=== PATIENT | male | born 1950 | race Caucasian/White ===

== ENCOUNTER 2021-11-09 11:44 | Outpatient (CLI) | payer MEDICARE, BC, SELFPAY | END 2021-11-09 11:45 | disposition home or self-care (01) | LOC: OP CLINIC 11:45 | PROVIDERS: PCP Family Medicine; Visit Provider Internal Medicine Gastroenterology | DX: Z12.11 Encounter for screening for malignant neoplasm of colon (principal); K63.5 Polyp of colon; K57.30 Diverticulosis of large intestine without perforation or abscess without bleeding; Z86.010 Personal history of colon polyps | CPT/HCPCS: 45380; 45385; 88305; 99153; J2250; J3010 ==

== ENCOUNTER 2023-08-09 07:37 | Emergency (ER) | payer MEDICARE, BC, SELFPAY ==
[2023-08-09] VITALS (30 sets, daily range): BP systolic 98–132; BP diastolic 65–91; PULSE 63–88; RESP 6–19; TEMP 36.4; O2SAT 2–98; BMI 30.3
--- NOTE | 2023-08-09 08:31 | XR_ITS ---
Patient: KAMI AVALOS Facility:?[facility] Patient ID:?[id number] Site Patient ID:?[id number]. Site :?[id number] Study:?XRay-Chest 2 VIEW-08/09/2023 8:52:52 AM Ordering Physician:ABE MENESES Final Report: Indication: AFib Comparison: None available. Technique: PA and lateral views of the chest Findings: There is minimal basilar atelectasis and parenchymal scar without dense consolidation, effusion or pneumothorax. The cardiomediastinal silhouette is within normal limits. The bony thorax is grossly intact. Impression: Minimal basilar atelectasis and parenchymal scar without dense consolidation. Dictated by Omar Pittman MD @ 08/09/2023 9:06:03 AM Signed by:?Omar Pittman MD @08/09/2023 9:06:03 AM (Electronic Signature)
[2023-08-09] MEDS: 0.9 % SODIUM CHLORIDE 1000 ml 1,000 ML IV (08:36)
[2023-08-09 08:42] LABS: Troponin, Point-of-Care* 0.01 ng/ml (0.01-0.04)
--- OUTSIDE RECORDS SUMMARY | 2023-08-09 08:42 | XMS_ITS | Clinical Summary ---
Author Name Unknown Organization [facility] [place], [place] [address] Care Team Providers Care [employer] General Sales Manager Name Role Phone Brendon Brandt MD Primary Care Provider Allergies Active Allergy Reactions Criticality Noted Date Comments Amlodipine Other - Describe In Comment Field 07/26/2017 Edema on 10mg, and on 5mg. Hydrochlorothiazide Other - Describe In Comment Field 09/23/2017 Modest increase in Creatinine to 1.39. Returned to normal after stopping. Medications Medication Sig Dispensed Refills Start Date End Date Status rivaroxaban (Xarelto) 20 mg tabletIndications:A trial fibrillation, unspecified type (HC) Take 1 Tablet (20 mg) by mouth once daily with evening meal. 90 Tablet 3 07/26/2022 Active CPAPIndications:AMIE (obstructive sleep apnea) CPAP machine for home use at pressure 11.6 cmw, full face mask x1/3month with a full face cushion x1/mo 1 Each 11 02/11/2023 Active propafenone (RYTHMOL SR) 225 mg Sustained-Release capsuleIndications: Paroxysmal atrial fibrillation (HC) Take 1 Capsule (225 mg) by mouth every 12 hours. 180 Capsule 3 04/19/2023 Active desonide 0.05% (TRIDESILON 0.05% CREAM) 0.05 % creamIndications:Se borrheic dermatitis Apply topically to affected area(s) 3 times daily. Apply to affected area. Only using as needed. 30 g 1 07/05/2023 Active atorvastatin (LIPITOR) 80 mg tabletIndications:M ixed hyperlipidemia Take 1 Tablet (80 mg) by mouth once daily. 90 Tablet 3 07/05/2023 Active lisinopriL (PRINIVIL; ZESTRIL) 40 mg tabletIndications:E ssential hypertension Take 1 Tablet (40 mg) by mouth once daily. 90 Tablet 3 07/05/2023 Active metoprolol succinate (TOPROL XL) 50 mg sustained-release tabletIndications:A trial fibrillation, unspecified type (HC) Take 1 Tablet (50 mg) by mouth once daily. 90 Tablet 08/05/2023 Active metoprolol succinate (TOPROL XL) 50 mg sustained-release tabletIndications:A trial fibrillation, unspecified type (HC) Take 1 Tablet (50 mg) by mouth once daily. 90 Tablet 3 07/29/2022 Discontinue d(Reorder (E-cancel not sent)) Active Problems Problem Noted Date Diagnosed Date Adenomatous duodenal polyp; 01/2023, referred to [place]. 01/07/2023 Overview: EGD 01/2023 H. Pylori, duodenal polyp, referred to a larger center for polypectomy H. pylori infection 01/202301/07/2023 Overview: EGD 01/2023 H. Pylori, duodenal polyp, referred to a larger center for polypectomy Adenomatous colon polyp 08/25/2017 Overview: Colonoscopy 08/2017 polyps, repeat in 3 years Colonoscopy 11/2021 2-TA, repeat in 5 years Hyperlipidemia 06/15/2017 Prediabetes 06/15/2017 Obesity 06/15/2017 Essential hypertension 03/08/2017 Paroxysmal atrial fibrillation 02/25/2016 Prostate cancer (HC) prostatectomy 201507/10/19 16 AMIE 12/09/2014 AHI-27 01/06/2015 Resolved Problems Problem Noted Date Diagnosed Date Resolved Date Stage 3a chronic kidney disease 07/02/2020 06/25/2021 Anticoagulation monitoring, INR range 2-3 [Z79.01] 02/27/2016 03/01/2016 Atrial fibrillation, unspecified type 02/25/2016 03/16/2016 A-fib 04/08/2015 06/15/2017 Atrial fibrillation 11/29/2014 03/16/20 16 Hypertriglyceridemia 11/29/201406/15/ 018 Encounters Date Type Department Care Team Description 08/05/2023 Refill [facility] [address] [place] [address] Raymundo Yanes MD Refill Request 08/05/2023 Refill [facility] [address] [facility] [place] [address] Brendon Brandt MD Refill Request (Lisinopril) 08/02/2023 1:15 PM CDT Office Visit [facility] [address] [place] [address] Brendon Brandt MD Follow Up (Blood pressure) 08/02/2023 Travel 07/29/2023 Refill [facility] [address] [place] [address] Brendon Brandt MD Refill Request (Atorvastatin) 07/27/2023 9:15 AM CDT Orders Only [facility] [address] [facility] [place] [address] Lab, [place] [facility] 07/27/2023 Travel 07/05/2023 10:30 AM CDT Office Visit [facility] [address] [facility] [place] [address] Brendon Brandt MD Medicare ANNUAL (subsequent) Visit (73 year old); Headache (Light headaches, happens occasionally, started about 2 months ago, ); Concerns (Check incision site from prostate removal for hernias/Discuss allergies) 07/05/2023 Travel 07/01/2023 Refill [facility] [address] [place] [address] Brendon Brandt MD Refill Request (Atorvastatin) 06/28/2023 9:00 AM CDT Orders Only [facility] [address] [facility] [place] [address] Lab, [place] [facility] 06/28/2023 Travel 05/17/2023 1:00 PM PROGRAM ENGINEER Nurse/Clinic Staff Only [facility] [address] [place] [address] Cardiovascular Diagnostic Testing (12 LEAD ECG) 05/17/2023 Travel 05/17/2023 Telephone [facility] [address] [facility] [address] [place] [address] Raymundo Yanes MD Questions (Cardioversion tomorrow ) 05/12/2023 Travel 05/11/2023 Telephone [facility] [address] [facility] [address] [place] [address] Raymundo Yanes MD Arrhythmia from Last 3 Months Immunizations Name Administration Dates Next Due COVID-19 vaccine ([employer] 30mcg/0.3mL) PF, MDV 06/24/2020,06/03/2020 Hepatitis B (Adult) 12/13/2016,10/04/2016,2016 Influenza Virus, Unspecified 01/13/2017,01/19/20 12 Influenza, High-dose Inactivated 01/17/2016 Influenza, High-dose Quadriv alent Inactivated 12/21/2021,01/08/2021 Influenza, IIV3 (Age 6-35 mos) 12/17/2019 Influenza, IIV3 (Age >=3 years) 01/07/20 15,01/10/2014,01/08/2013,2011,01/04/2011 Influenza, IIV4 01/06/2015 Influenza, IIV4 (=>6mos) MDV 01/10/2019 Influenza, Inactivated AIIV4 (Age 65+ Years) Preserv Free 01/21/2023 Influenza, Inactivated IIV3 (Age 65+ Years) Preserv Free 01/11/2018 Influenza, Whole Virus 01/13/2017 Pneumococcal Conj 20-valent (Prevnar 20) 07/05/2023 Pneumococcal Poly,23-Valent (Pneumovax) 02/05/2014 Pneumococcal conj 13-Valent (Prevnar 13) 07/11/2015 Td, Preservative Free (age > = 7 Years) 06/15/2017 Tdap 08/17/2007 Zoster (Shingrix-RZV, recombinant) 09/01/2018, Zoster (Zostavax-ZVL, live) 09/09/2010 Family History Medical History Relation Name Comments Cancer-prostate Father Heart Disease Maternal Grandfather d58 Lung cancer Mother Anesthesia Problem Neg. 1 Cancer-colon Neg. 2 Diabetes Neg. 3 Relation Name Status Comments Father Maternal Grandfather Mother Neg. 1 Neg. 2 Neg. 3 Social History Tobacco Use Types Packs/Day Years Used Date Smoking Tobacco: Former Cigarettes 1.5 10 Smokeless Tobacco: Never Tobacco Cessation:Counseling Given: No Alcohol Use Standard Drinks/Week Comments Yes 1 (1 standard drink = 0.6 oz pur e alcohol) seldom PHQ-2 Answer Date Recorded PHQ-2 TOTAL SCORE 0 07/05/2023 Social Connections Answer Date Recorded Frequency of Communication with Friends and Fami ly Not on file 12/11/2022 Financial Resource Strain Answer Date R ecorded Difficulty of Paying Living Expenses 3 12/09/2021 Difficulty of Paying Living Expenses Not on file 12/09/2021 Food Insecurity Answer Date Recorded Worried About Running Out of Food in the Last Ye ar 1 12/09/2021 Transportation Needs Answer Date Record ed Lack of Transportation (Medical) 1 12/09/2021 Housing Stability Answer Date Recorded Unable to Pay for Housing in the Last Year 1 12/09/2021 Sex and Gender Information Value Date Recorded Sex Assigned at Not on file Gender Identity Not on file Sexual Orientation Not on file Obstetrics History Last Filed Vital Signs Vital Sign Reading Time Taken Comments Blood Pressure 134/73 08/02/2023 1:14 PM CDT Pulse 72 08/02/2023 1:14 PM CDT Temperature 36.5 ??C (97.7 ??F) 12/03/2021 8:57 AM CD T Respiratory Rate 12 01/04/2023 4:12 PM CDT Oxygen Saturation 97% 08/02/2023 1:14 PM CDT Inhaled Oxygen Concentration - - Weight 92.1 kg (203 lb) 08/02/2023 1:14 PM CDT Height 174 cm (5' 8.5) 07/05/2023 10:33 AM CDT Body Mass Index 30.41 07/05/2023 10:33 AM CDT Plan of Treatment Upcoming Encounters Date Type Department Care Team (Late st Contact Info) Description 09/12/2023 4:00 PM CDT Office Visit [facility] [address] [facility] [address] [place] [address] Raymundo Yanes MD [address] [facility] [address] [place] [address] Health Maintenance Due Date Last Done Comments COVID-19 vaccine series ( season) 2022 07/31/2021, 02/11/2021, 06/24/2020, Additional history exists Influenza for age 65+ 12/04/2023 01/21/2023 , 12/21/2021, 01/08/2021, Additional history exists BMI (ht and wt on same day) for age 18+ 07/04/2024 07/05/2023, 07/26/2022, 07/15/2022, Additional history exists Depression screening for age 12+ 07/04/2024 07/05/2023, 06/30/2022, 06/25/2021, Additional history exists Medicare Wellness for age 65+ 07/05/2024, 06/30/2022, 06/25/2021, Additional history exists Colonoscopy through age 75 11/09/202611/09, 11/09/2021, 08/24/2017, Additional history exists Tetanus booster 06/16/2027 06/15/2017, 08/17/2007 Lipids for age 45-75 06/27/2028 06/28/2023, 06/24/2022, 06/22/2021, Additional history exists Tdap Completed 08/17/2007 Hepatitis C screening for ag e 18-79 Completed 03/26/2016 Zoster (shingles) series for age 50+ Completed 09/01/2018, 06/20/2018, 09/09/2010 Pneumococcal series for age 65+ Completed 07/05/2023, 07/11/2015, 02/05/2014 Procedures Procedure Name Priority Date/Time Associated Diagnosis Comments BASIC METABOLIC PANEL Routine 07/27/2023 9:16 AM CDT Essential hypertension BASIC METABOLIC PANEL Routine 06/28/2023 9:01 AM CDT Essential hypertension HEMOGLOBIN A1C SCREENING Routine 06/28/2023 9:01 AM CDT Prediabetes PSA TOTAL (DIAGNOSTIC) Routine 06/28/2023 9:01 AM CDT Prostate cancer (HC) LIPID PANEL W REFLEX MEASURED LDL Routine 06/28/2023 9:01 AM CDT Mixed hyperlipidemia EKG 12 LEAD Routine 05/17/2023 1:18 PM PROGRAM ENGINEER Paroxysmal atrial fibrillation (HC) EKG 12 LEAD Routine 05/12/2023 9:02 AM PROGRAM ENGINEER Paroxysmal atrial fibrillation (HC) SC COLONOSCOPY W/BIOPSY SINGLE/MULTIPLE Routine 11/09/2021 12:00 AM CDT History of colon polyps Polyp of colon, unspecified part of colon, unspecified type ANTI HCV Routine 03/26/2016 7:57 AM PROGRAM ENGINEER Need for hepatitis C screening test from Last 3 Months or Most Recently Relevant to Health Maintenance Results * (ABNORMAL) BASIC METABOLIC PANEL (07/27/2023 9:16 AM CDT) Only the most recent of2 resultswithin the time period is included. SODIUM 141 136 - 145 mmol/L 07/27/2023 7:03 PM CDT [facility] POTASSIUM 5.1 3.5 - 5.1 mmol/L 07/27/2023 7:03 PM CDT [facility] CHLORIDE 106 98 - 107 mmol/L 07/27/2023 7:03 PM CDT [facility] CO2,TOTAL 24 22 - 29 mmol/L 07/27/2023 7:03 PM CDT [facility] ANION GAP 11 5 - 18 07/27/2023 7:03 PM CDT [facility] GLUCOSE 107(H) 70 - 99 mg/dL 07/27/2023 7:03 PM CDT [facility] CALCIUM 9.2 8.8 - 10.2 mg/dL 07/27/2023 7:03 PM CDT [facility] BUN 18 8 - 23 mg/dL 07/27/2023 7:03 PM CDT [facility] CREATININE 1.19 0.70 - 1.20 mg/dL 07/27/2023 7:03 PM CDT [facility] BUN/CREAT RATIO 15 10 - 20 7:03 PM CDT [facility] eGFR 64(L) >90 mL/min/1.7 3m2 07/27/2023 7:03 PM CDT [facility] Comment:As of 2021, eG FR is calculated by the CKD-EPI creatinine equation without race adjustment. ??eGFR can be influenced by muscle mass, exercise, and diet. ??The reported eGFR is an estimation only and is only applicable if the renal function is stable. Blood BLOOD SPECIMEN / Unknown Venipuncture / Unknown 07/27/2023 9:16 AM CDT 07/27/2023 9:17 AM CDT Brendon Brandt MD CHEMISTRY [facility] [address] [place] [address], * HEMOGLOBIN A1C SCREENING (06/28/2023 9:01 AM CDT) HEMOGLOBIN A1C SCREENING 5.7 <=6.4 % 06/28/2023 5:09 PM CDT [facility] Blood BLOOD SPECIMEN / Unknown Venipuncture / Unknown 06/28/2023 9:01 AM CDT 06/28/2023 9:02 AM CDT Narrative [facility] - 06/28/2023 5:09 PM CDT ? (<5.7%) ?Normal ? (5.7% to 6.4%) ? Indicates prediabetes ? (>=6.5%) ? Confirms diabetes Falsely low levels may be seen with: Recent Transfusion, Recent Significant Blood Loss, Hemolytic Diseases, or Falsely elevated levels may be seen with: Untreated Anemias, Splenectomy Brendon Brandt MD CHEMISTRY Performing Organization Address City/[facility]/ZIP Co de Phone Number [facility] [address] [place] [address], * (ABNORMAL) LIPID PANEL W REFLEX MEASURED LDL (06/28/2023 9:01 AM CDT) [facility] CHOLESTEROL,TOTAL 110 100 - 199 mg/dL 06/28/2023 4:17 PM CDT [facility] Comment: Cholesterol, Total Reference Ranges Desirable <200 mg/dL Borderline 200-239 mg/dL High >=240 mg/dL TRIGLYCERIDES 123 <150 mg/dL 06/28/2023 4:17 PM CDT [facility] HDL CHOLESTEROL 38(L) >40 mg/dL 4:17 PM CDT [facility] NON-HDL CHOLESTEROL 72 <145 mg/dl 06/28/2023 4:17 PM CDT [facility] CHOL/HDL RATIO 2.89 <4.50 06/28/2023 4:17 PM CDT [facility] LDL CHOLESTEROL 47 <=130 mg/dL 06/28/2023 4:17 PM CDT [facility] VLDL CHOLESTEROL 25 <=30 mg/dL 06/28/2023 4:17 PM CDT [facility] PROVIDER ORDERED STATUS RANDOM 06/28/2023 4:17 PM CDT [facility] Blood BLOOD SPECIMEN / Unknown Venipuncture / Unknown 06/28/2023 9:01 AM CDT 06/28/2023 9:02 AM CDT Brendon Brandt MD CHEMISTRY Performing Organization Address [facility]/ZIP Co de Phone Number [facility] [address] [place] [address], * PSA TOTAL (DIAGNOSTIC) (06/28/2023 9:01 AM CDT) PSA TOTAL (DIAGNOSTIC) <0.02 <4.00 ng/mL 06/28/2023 4:41 PM CDT [facility] Blood BLOOD SPECIMEN / Unknown Venipuncture / Unknown 06/28/2023 9:01 AM CDT 06/28/2023 9:02 AM CDT Narrative [facility] - 06/28/2023 4:41 PM CDT The test method changed on 09/28/2022. If this test has been used for serial monitoring, rebaselining is recommended. Rebaselining consists of 2 measurements, collected 3-6 weeks apart. The [employer]anti Elecsys total PSA assay is an electrochemiluminescence immunoassay ECLIA performed on the Santi Elder e immunoassay analyzers. Values obtained with different assay methods may be different and cannot be used interchangeably. Brendon Brandt MD CHEMISTRY Performing Organization Address [facility] Co de Phone Number [facility] [address] [place] [address], * EKG 12 LEAD (05/17/2023 1:18 PM PROGRAM ENGINEER) Only the most recent of2 resultswithin the time period is included. Raymundo Yanes MD EKG ORD * SC COLONOSCOPY W/BIOPSY SINGLE/MULTIPLE (11/09/2021 12:00 AM CDT) Roger Duran MD PB - [employer] * ANTI HCV [41805.2] (03/26/2016 7:57 AM PROGRAM ENGINEER) HEPATITIS C ANTIBODY Non-Reacti ve Non-Reacti ve 03/26/2016 2:17 PM PROGRAM ENGINEER [facility] Blood BLOOD SPECIMEN / Unknown Venipuncture / Unknown 03/26/2016 7:57 AM PROGRAM ENGINEER 03/26/2016 7:57 AM PROGRAM ENGINEER Narrative [facility] - 03/26/2016 2:17 PM PROGRAM ENGINEER Antibodies to HCV not detected; does not exclude the possibility of exposure to HCV. Brendon Brandt MD SEND OUTS [facility] [address] [place] [address], from Last 3 Months or Most Recently Relevant to Health Maintenance Advance Directives * Full Code (Latest Code Status on File) Date Activated Date Inactivated Comments 12/02/2021 4:10 PM 12/03/2021 1:09 PM Question Answer Comments Code Status Discussion: Other * Full Code Date Activated Date Inactivated Comments 09/29/2017 7:20 AM 09/30/2017 2:16 AM * Full Code Date Activated Date Inactivated Comments 05/26/2016 6:51 AM 05/26/2016 12:17 PM * Full Code Date Activated Date Inactivated Comments 03/09/2016 10:51 AM 03/10/2016 12:13 PM * Full Code Date Activated Date Inactivated Comments 01/08/2015 7:21 AM 01/08/2015 12:50 PM Care Teams Automotive General Sales Manager Relationship Specialty Start Date End Date Brendon Brandt MD [address] [place] [address] PCP - General Family Practice 09/02/14
--- OUTSIDE RECORDS SUMMARY | 2023-08-09 08:42 | XMS_ITS | Data Portability ---
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 Fatigue. Palpitations. - Hx. A-Fib PLAN - HR at 144 bpm. - EKG: atrial fibrillation with a rapid ventricular response. HR 104. - Physical examination shows no signs of heart failure or other significant abnormalities. - fu: Pt reffered to ER for further evaluation. DIAGNOSIS Not available 04/29/2023 19:13:44 Plan of Treatment Reminders Order Date Submit Date Provider Last Modified By Organization Details Last Modified Time Details Appointments None record ed. Lab None record ed. Referral None record ed. Procedures None record ed. Surgeries None record ed. Imaging None record ed. Medication Orders None record ed. Patient TargetsNo targets recorded. Patient Instructions Encounter Date Encounter Id Patient Instructions Last Modified By Organization Details Last Modified Time 04/29/2023 [id number] atrial fibrillation: care instructions Not available 04/29/2023 19:14:04 Atrial Fibrillation: Care Instructions Your Care Instructions Atrial fibrillation is an irregular and often fast heartbeat. Treating this condition is important for several reasons. It can cause blood clots, which can travel from your heart to your brain and cause a stroke. If you have a fast heartbeat, you may feel lightheaded, dizzy, and weak. An irregular heartbeat can also increase your risk for heart failure. Atrial fibrillation is often the result of another heart condition, such as high blood pressure or coronary artery disease. Making changes to improve your heart condition will help you stay healthy and active. Follow-up care is a ross part of your treatment and safety. Be sure to make and go to all appointments, and call your doctor if you are having problems. It's also a good idea to know your test results and keep a list of the medicines you take. How can you care for yourself at home? Medicines Take your medicines exactly as prescribed. Call your doctor if you think you are having a problem with your medicine. You will get more details on the specific medicines your doctor prescribes. If your doctor has given you a blood thinner to prevent a stroke, be sure you get instructions about how to take your medicine safely. Blood thinners can cause serious bleeding problems. Do not take any vitamins, icnb-mec-xwdthdf drugs, or herbal products without talking to your doctor first. Lifestyle changes Do not smoke. Smoking can increase your chance of a stroke and heart attack. If you need help quitting, talk to your doctor about stop-smoking programs and medicines. These can increase your chances of quitting for good. Eat a heart-healthy diet. Stay at a healthy weight. Lose weight if you need to. Limit alcohol to 2 drinks a day for men and 1 drink a day for women. Too much alcohol can cause health problems. Avoid colds and flu. Get a pneumococcal vaccine shot. If you have had one before, ask your doctor whether you need another dose. Get a flu shot every year. If you must be around people with colds or flu, wash your hands often. Activity If your doctor recommends it, get more exercise. Walking is a good choice. Bit by bit, increase the amount you walk every day. Try for at least 30 minutes on most days of the week. You also may want to swim, bike, or do other activities. Your doctor may suggest that you join a cardiac rehabilitation program so that you can have help increasing your physical activity safely. Start light exercise if your doctor says it is okay. Even a small amount will help you get stronger, have more energy, and manage stress. Walking is an easy way to get exercise. Start out by walking a little more than you did in the hospital. Gradually increase the amount you walk. When you exercise, watch for signs that your heart is working too hard. You are pushing too hard if you cannot talk while you are exercising. If you become short of breath or dizzy or have chest pain, sit down and rest immediately. Check your pulse regularly. Place two fingers on the artery at the palm side of your wrist, in line with your thumb. If your heartbeat seems uneven or fast, talk to your doctor. When should you call for help? Call anytime you think you may need emergency care. For example, call if: You have symptoms of a heart attack. These may include: Chest pain or pressure, or a strange feeling in the chest. Sweating. Shortness of breath. Nausea or vomiting. Pain, pressure, or a strange feeling in the back, neck, jaw, or upper belly or in one or both shoulders or arms. Lightheadedness or sudden weakness. A fast or irregular heartbeat. After you call , the engineering equipment operator may tell you to chew 1 adult-strength or 2 to 4 low-dose aspirin. Wait for an ambulance. Do not try to drive yourself. You have symptoms of a stroke. These may include: Sudden numbness, tingling, weakness, or loss of movement in your face, arm, or leg, especially on only one side of your body. Sudden vision changes. Sudden trouble speaking. Sudden confusion or trouble understanding simple statements. Sudden problems with walking or balance. A sudden, severe headache that is different from past headaches. You passed out (lost consciousness). Call your doctor now or seek immediate medical care if: You have new or increased shortness of breath. You feel dizzy or lightheaded, or you feel like you may faint. Your heart rate becomes irregular. You can feel your heart flutter in your chest or skip heartbeats. Tell your doctor if these symptoms are new or worse. [email or web address] Not available 04/29/2023 12:58:25 Reason for Referral None Reported. Results Created Date Observation Date Name Description Value Unit Range Abnormal Flag LastModifiedBy Organization Detail LastModifiedTime 04/29/19 24 mouna cintron am No observ ation record ed. Not Available 04/29/2023 13:02:25 Result Notes None recorded. Problems Name Status Onset Date Resolution Date Notes Provider Name and Address Organization Details Recorded Time Atrial fibrillation Active LU Dunham - [facility], [facility] 04/29/2023 12:16:56 Hypertensive disorder Active Hilda Cha [facility] 04/29/2023 12:17:03 Problem Notes None recorded. Procedures Surgical History Date Name Laterality Status Provider Name and Address Organization Details Recorded Time 04/29/19 24 [facility] 13:10:08 05/05/19 22 destruction of lesion of heart completed Hilda Lamaman [facility] 04/29/2023 12:18:09 07/04/19 16 Prostatectomy completed Hilda Cha [facility] 04/29/2023 12:18:39 04/04/18 76 Appendectomy completed Hilda Lamaman [facility] 04/29/2023 12:18:48 Imaging Results Imaging Date Name Status LastModified by Organization Details LastModified Time 04/29/2023 electrocardiogram completed Informa tion not available 04/29/2023 13:02:25 Procedure Notes None recorded. Medical Equipment None Reported. Medications Name Sig Start Date Stop Date Status Note LastModified by Organization Details LastModified Time desonide 0.05 % topical cream APPLY SPARINGLY AND RUB GENTLY INTO THE AFFECTED AREA(S) BY TOPICAL ROUTE 2 TIMES PER DAY active Not Available Not Available No t Available atorvastatin 80 mg tablet Take 1 tablet every day by oral route. active Not Available Not Available No t Available metoprolol succinate ER 50 mg tablet,extend ed release 24 hr Take 1 tablet every day by oral route. active Not Available Not Available No t Available lisinopril 20 mg tablet Take 1 tablet every day by oral route. active Not Available Not Available No t Available propafenone 225 mg tablet Take 1 tablet twice a day by oral route. active Not Available Not Available No t Available Xarelto 20 mg tablet Take 1 tablet every day by oral route. active Not Available Not Available No t Available Vitals Date Recorded Body height Body mass index (BMI) Body weight Respiratory rate Body temperature Heart rate Oxygen saturation Oxygen saturation in Arterial blood by Pulse oximetry Systolic blood pressure Diastolic blood pressure Provider Name and Address Organization Details Last Updated DateTime 4 172.72 cm 29.6 kg/m2 21931.5 1 g 18 /min 98.3 [degF] 144 /min 97 % 97 % 121 mm[Hg] 85 mm[Hg] Hilda Cha augusto [facility] 12:27:44 Social History Question Answer Notes LastModified by Organizat ion Details LastModified Time Tobacco Smoking Status Former Smoker Hilda Cha augusto [facility] 04/29/2023 12:19:24 What Is Your Level Of Alcohol Consumption? Moderate Information not available 04/29/2023 What Is Your Level Of Caffeine Consumption? Moderate [email or web address] Information not available 04/29/2023 When Did You Quit Smoking? 16+yearssincel astciatilio [email or web address] Information not available 04/29/2023 Sex: Male Functional Status None recorded. Mental Status None recorded. Family History Relationship Description Onset Age of this Age Resolved Age Notes Father Old-age 84 history of heart attack Mother Malignant tumor of lung 91 Medical History Condition Response Cancer Y Heart Problems Y Prostate Cancer Y Hypertension Y Chicken Pox Y Past Encounters Encounter ID Performer Location Encounter Start Date Encounter Closed Date Diagnosis/Indication Diagnosis SNOMED-CT Code [id number] Charmaine Dill NP,S [facility] [address] [id number] 04/29/2023 12:06:24 04/29/2023 13:08:33 Atrial fibrillation 53011070 Palpitations [id number] Tachycardia 5466999 Long-term current use of anticoagulant [id number] Health Concerns Section Related Observation LastModified by Organization Detai ls LastModified Time None Recorded Concern Status LastModified by Organization Details LastModified Time None Recorded Advance Directives Directive None Recorded Payers Encounter Date Sequence Insurance Name Policy Number Policy Cannon Covered Member ID Cannon Member ID Guarantor Name 04/29/2023 1 [place] [id number] Olegario Katz [id number] Olegario Katz 04/29/2023 2 [place] Olegario Katz [id number] Olegario Gonzalezon Notes Date Note Type Note Provider Name and Address Organization Details Recorded Time 04/29/2023 text/html HPI Notes: Atria l Fibrillation / Flutter IM FM Reported by patient. Current Status: stable Duration: intermittent Medications/Rate Control: compliant with medication; anticoagulation for stroke prevention Prior Imaging / procedure : recent ECG (states it was about late March or early April with doctor [facility] cardiac ablation (2021) Follow Up compliant with appointment with PCP Lifestyle Compliance no tobacco use Associated Symptoms: no dizziness; no chest pain; no easy bruisability; rapid heart rate Medication reconciliation done. Charmaine Dill NP,S [address], [place], [address], [facility], [facility] 04/29/2023 19:14:37
[2023-08-09 08:46] LABS: Basophils Absolute Auto 0.01 K/uL (0.00-0.30); Basophils Percent Auto 0.2 % (0.0-3.0); Eosinophils Percent Auto 7.3 % (0.0-7.0); Hematocrit 44.5 % (37.0-53.0); Hemoglobin* 14.6 gm/dL (13.5-17.5); Immature Granulocytes Abs Auto 0.01 K/uL (0.00-0.30); Immature Granulocytes Pct Auto 0.2 %; Lymphocytes Absolute Auto 1.67 K/uL (0.90-2.90); Lymphocytes Percent Auto 27.9 % (20-44); Mean Corpuscular HGB Conc 33 gm/dL (32-36); Mean Corpuscular Hemoglobin 29 pg (26-34); Mean Corpuscular Volume 88 fL (80-100); Monocytes Percent Auto 11.5 % (0.0-11.0); Neutrophils Absolute Auto 3.17 K/uL (1.7-7.0); Neutrophils Percent Auto 52.9 % (42.0-72.0); Platelet Count* 171 K/uL (140-440); Red Blood Count 5.05 m/uL (4.30-5.90); White Blood Count* 5.99 K/uL (4.50-11.00)
[2023-08-09 08:48] LABS: Slide Review Reflex No
[2023-08-09 09:02] LABS: INR 1.52 (0.91-1.10); Prothrombin Time 19.3 Seconds
[2023-08-09 09:03] LABS: Partial Thromboplastin Time* 35 Seconds (23-33)
[2023-08-09 09:13] LABS: Chloride* 109 mmol/L (96-114); Potassium* 4.3 mmol/L (3.6-5.1); Sodium* 139 mmol/L (135-149)
[2023-08-09 09:16] LABS: Creatinine* 1.1 mg/dL (0.5-1.5); Est. Creatinine Clearance* 58.02; Estimated Glomerular Filt Rate 70 ml/min
[2023-08-09 09:17] LABS: Anion Gap 8 mEq/L (7-15); Blood Urea Nitrogen* 28 mg/dL (7-30); Calcium* 9.1 mg/dL (8.4-10.6); Carbon Dioxide* 22 mmol/L (20-32); Glucose* 114 mg/dL (60-115)
[2023-08-09 09:25] LABS: Ethanol* < 0.01 % (0.01-0.03); NT Pro B Type NatriureticPept* 572 pg/mL
--- NOTE | 2023-08-09 09:53 | ED.ARRPALP ---
HPI - Arrhythmia/Palpitations General Date Seen: 08/09/23 Chief Complaint: Arrhythmia/Palpitations Stated Complaint: afib Time Seen by Provider: 08/09/23 08:30 Source: patient and family Mode of arrival: ambulatory Limitations: no limitations History of Present Illness HPI narrative: Pt started feeling an irregular heart beat last night 1829. Can feel palpitations at times. Does have known afib , feels similar to previous episodes. Has been cardioverted before. No other symptoms noted per pt. Is on Xarelto. Patient is a very nice gentleman who presents here with approximately a a 14 hour history of atrial fibrillation, he noted a came on last night at approximately 6:30 p.m., he noted the regularity and some mild fatigue associated with this. He did not have any chest pain maybe a little bit of shortness of breath associated with this and he has had this before enough times in the past where he knows when he gets this. In the past he has used the pill in the pocket approach, but is now chronically on the medication and cannot do this. Followed by cardiology at [place] [facility] front [facility] Dr. Yanes. He is scheduled to see him next month, for possibly consideration or re ablation as he has had this before. Previously he has been cardioverted with medications approximately 8 months ago in [place], and with electricity approximately 6-7 years ago. Denies alcohol use, denies dehydration denies using cold medications. He is on Xarelto chronically for the last 6-7 years. Has not missed any of these doses. Any last ate last night at approximately 630 but he did had coffee (black) this morning at 7am. MD complaint: palpitations and irregular heart beat Related Data Home Medications Medication Instructions Recorded Confirmed atorvastatin 80 mg tablet 80 mg PO DAILY 08/09/23 08/09/23 lisinopril 20 mg tablet 20 mg PO DAILY 08/09/23 08/09/23 lisinopril 40 mg tablet 40 mg PO DAILY 08/09/23 08/09/23 metoprolol succinate 50 mg 50 mg PO DAILY 08/09/23 08/09/23 tablet,extended release 24 hr propafenone 225 mg 225 mg PO Q12H 08/09/23 08/09/23 capsule,extended release 12 hr rivaroxaban 20 mg tablet (Xarelto) 20 mg PO QPM 08/09/23 08/09/23 Allergies Allergy/AdvReac Type Severity Reaction Status Date / Time amlodipine AdvReac Unknown Verified 08/09/23 07:50 Review of Systems Status of ROS: Reports: 10 or more systems reviewed and unremarkable except as noted in History and below [facility] Social History Smoking Status: Never smoker Do you use any of these nicotine containing products: None How often do you have a drink containing alcohol: never How often do you have six or more drinks on one occasion: Never AUDIT-C Alcohol total score: 0 Non-prescribed substance use: denies use Exam Narrative: Exam Narrative: On examination in room 8 he is in no apparent distress, sitting talking to me normally. Pupils equal round reactive to light there is no scleral icterus or redness, TMs are normal oropharynx is normal there is no adenopathy anterior posterior chains his chest is good air entry bilaterally with no wheezing crackles noted his heart sounds no S1-S2 are normal there is no S3-S4 here is an irregularly irregular pulse. But is slow and controlled. Abdomen is soft there is no guarding no organomegaly bowel sounds are normal, there is no evidence of any swelling, edema he moves all extremities independently and well, and has normal power in his upper lower extremities. Const: Vital Signs, click to edit/add: Vital Signs - 24 hr 08/09/23 07:41 08/09/23 07:57 08/09/23 08:01 Temperature 97.6 F Pulse Rate 72 78 Pulse Rate [Right Pulse Oximeter] 83 Respiratory Rate 18 Blood Pressure 124/67 Blood Pressure [Le ft Upper Arm] 129/85 Pulse Oximetry 95 92 95 Oxygen Delivery Me thod Room Air 08/09/23 08:02 08/09/23 08:15 08/09/23 08:30 Temperature Pulse Rate 72 73 68 Pulse Rate [Right Pulse Oximeter] Respiratory Rate Blood Pressure Blood Pressure [Le ft Upper Arm] Pulse Oximetry 96 93 Oxygen Delivery Me thod 08/09/23 08:31 08/09/23 08:32 08/09/23 08:33 Temperature Pulse Rate 67 73 Pulse Rate [Right Pulse Oximeter] Respiratory Rate Blood Pressure 116/69 Blood Pressure [Le ft Upper Arm] Pulse Oximetry 96 93 93 Oxygen Delivery Me thod 08/09/23 08:46 08/09/23 09:00 08/09/23 09:02 Temperature Pulse Rate 63 85 88 Pulse Rate [Right Pulse Oximeter] Respiratory Rate Blood Pressure 112/72 Blood Pressure [Le ft Upper Arm] Pulse Oximetry 94 95 96 Oxygen Delivery Me thod 08/09/23 09:15 08/09/23 09:30 08/09/23 09:33 Temperature Pulse Rate 69 76 72 Pulse Rate [Right Pulse Oximeter] Respiratory Rate Blood Pressure 117/68 Blood Pressure [Le ft Upper Arm] Pulse Oximetry 96 95 96 Oxygen Delivery Me thod 08/09/23 09:45 08/09/23 10:04 08/09/23 10:05 Temperature Pulse Rate 79 78 77 Pulse Rate [Right Pulse Oximeter] Respiratory Rate Blood Pressure 132/91 H Blood Pressure [Le ft Upper Arm] Pulse Oximetry 93 95 98 Oxygen Delivery Me thod 08/09/23 10:15 08/09/23 10:30 08/09/23 10:32 Temperature Pulse Rate Pulse Rate [Right Pulse Oximeter] Respiratory Rate 17 15 15 Blood Pressure 119/85 Blood Pressure [Le ft Upper Arm] Pulse Oximetry Oxygen Delivery Me thod Documenting provider has reviewed patient's vital signs: yes Course Reevaluation(s) Time of Reevaluation #1: 10:17 Reevaluation #1: Second EKG 2 hours after the 1st shows the patient continues to be in atrial fibrillation with no acute changes, 2nd troponin is reassuring. I think we can go ahead with the cardioversion, anesthesia is been contacted for sedation. I went over the risks benefits and side effects with the patient he signed the consent form. Time of Reevaluation #2: 11:00 Reevaluation #2: Patient underwent elective cardioversion, 200 joules, propofol was by Anesthesia, this worked excellent patient is now in sinus rhythm confirmed by both EKG and monitor. We will recover him in the long to go home, with the above ice can continue on his medication. Vital Signs Vital signs: Initial Vital Signs Temperature 97.6 F 08/09/23 07:41 Temperature Source Temporal Artery Scan 08/09/23 07:41 Pulse Rate 83 08/09/23 07:41 Respiratory Rate 18 08/09/23 07:41 Blood Pressure 129/85 08/09/23 07:41 Blood Pressure Mean 99 08/09/23 07:41 Blood Pressure Position Semi-Fowlers 08/09/23 07:41 Pulse Oximetry 95 08/09/23 07:41 Oxygen Delivery Method Room Air 08/09/23 07:41 Vital Signs Temperature 97.6 F 08/09/23 07:41 Pulse Rate 83 08/09/23 07:41 Respiratory Rate 18 08/09/23 07:41 Blood Pressure 129/85 08/09/23 07:41 Pulse Oximetry 95 08/09/23 07:41 Oxygen Delivery Method Room Air 08/09/23 07:41 Temperature 97.6 F 08/09/23 07:41 Pulse Rate 77 08/09/23 10:05 Respiratory Rate 15 08/09/23 10:32 Blood Pressure 119/85 08/09/23 10:32 Pulse Oximetry 98 08/09/23 10:05 Oxygen Delivery Method Room Air 08/09/23 07:41 Medications Administered Medications: Discontinued Medications Generic Name Dose Route Start Last Admin Trade Name Freq PRN Reason Stop Dose Admin Sodium Chloride 1,000 mls @ 1,000 mls/hr 08/09/23 08:45 08/09/23 09:31 0.9 % Sodium Chloride 1000 Ml IV 08/09/23 09:44 Infused .Q1H DANIELE Infusion MDM - Arrhythmia/Palpitations MDM Narrative Medical decision making narrative: Differential diagnosis includes but is not limited to psychosocial stress, thyroid abnormalities, CHF, SVT, atrial fibrillation, ventricular tachycardia and ventricular fibrillation. This includes the life-threatening complications of heart failure, V-tach, and VFib Initial troponin 0.01, we will repeat this 2 hours after he has been here. Along with his EKG I did speak to insurance counsel Dr. Reardon at [facility] who thought it was an excellent idea to consider electricity in this gentleman, for getting him back into normal sinus rhythm. 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 Patient is advocating for this, Differential Diagnosis Differential diagnosis: Likely palpitations, anxiety, sinus tachycardia, artial fibrillation, artial flutter, ventricular premature beats, supraventricular tachycardia, ventricular tachycardia and WPW Medical Records Attestation: I reviewed the patient's medical records. Lab Data Attestation: I reviewed the patient's lab results. Labs: Lab Results 08/09/23 08/09/23 08/09/23 Range/Units 07:30 08:31 09:49 WBC 5.99 (4.50-11.00) K/uL RBC 5.05 (4.30-5.90) m/uL Hgb 14.6 (13.5-17.5) gm/dL Hct 44.5 (37.0-53.0) % MCV 88 (80-100) fL MCH 29 (26-34) pg MCHC 33 (32-36) gm/dL RDW Coeff of Hunter 13.0 (11.5-15.5) % Plt Count 171 (140-440) K/uL Neut % (Auto) 52.9 (42.0-72.0) % Lymph % (Auto) 27.9 (20-44) % Jessamine % (Auto) 11.5 H (0.0-11.0) % Eos % (Auto) 7.3 H (0.0-7.0) % Baso % (Auto) 0.2 (0.0-3.0) % Neut # (Auto) 3.17 (1.7-7.0) K/uL Lymph # (Auto) 1.67 (0.90-2.90) K/uL Jessamine # (Auto) 0.70 (0.00-0.90) K/UL Eos # (Auto) 0.40 (0.00-0.50) K/uL Baso # (Auto) 0.01 (0.00-0.30) K/uL Abs Immat Gran (auto) 0.01 (0.00-0.30) K/uL Imm/Tot Granulo (auto) 0.2 % INR 1.52 H (0.91-1.10) APTT 35 H (23-33) Seconds Sodium 139 (135-149) mmol/L Potassium 4.3 (3.6-5.1) mmol/L Chloride 109 (96-114) mmol/L Carbon Dioxide 22 (20-32) mmol/L Anion Gap 8 (7-15) mEq/L BUN 28 (7-30) mg/dL Creatinine 1.1 (0.5-1.5) mg/dL Estimated Creat Clear 58.02 Estimated GFR 70 ml/min Glucose 114 (60-115) mg/dL Calcium 9.1 (8.4-10.6) mg/dL Magnesium 2.3 (1.5-2.6) mg/dL NT-Pro-B Natriuret Pep 572 pg/mL Ethyl Alcohol < 0.01 L (0.01-0.03) % POC Troponin I 0.01 0.00 L (0.01-0.04) ng/ml Imaging Data Chest x-ray: Attestation: I have reviewed the pertinent imaging results. My impression: Normal Radiologist's impression: Some mild atelectasis with bibasilar scarring, no acute findings per Radiology ECG Data Attestation: I personally reviewed and interpreted this ECG as follows: ECG interpretation date: 08/09/23 Prior ECG tracings: available for review Interpretation: Atrial fibrillation controlled rate of 89, normal QRS normal QT, no acute ST wave changes. Repeat EKG shows no further atrial fibrillation. Normal parameters, no acute ST wave changes, QRS QT and AK interval normal ventricular rate 68 Discharge Plan Discharge Clinical Impression: Atrial fibrillation Patient Disposition: Home w/ Parent or Adult Condition: Improved Instructions: A-fib (Atrial Fibrillation) (ED), Blood Thinners (ED), Cardiac Ablation (DC) Additional Instructions: Home continue medications, follow-up with electrophysiology. Return as needed. No alcohol today, lots of fluids rest. Activity Level: Light activity Prescriptions: No Action atorvastatin 80 mg tablet 80 mg PO DAILY metoprolol succinate 50 mg tablet extended release 24 hr 50 mg PO DAILY lisinopril 20 mg tablet 20 mg PO DAILY lisinopril 40 mg tablet 40 mg PO DAILY propafenone 225 mg capsule,extended release 12 hr 225 mg PO Q12H Xarelto 20 mg tablet 20 mg PO QPM Follow Up/Referrals: Brendon Brandt MD [Primary Care Provider] - Stand Alone [facility]
[2023-08-09 10:22] LABS: Magnesium* 2.3 mg/dL (1.5-2.6)
--- NOTE | 2023-08-09 10:40 | W.ANESCHARGE ---
Anesthesia Charges Start Date/Time Anesthesia Start Date: 08/09/23 Anesthesia Start Time: 10:45 Stop Date/Time Anesthesia Stop Date: 08/09/23 Anesthesia Stop Time: 10:53 Summary Emergency: MDA Extremes of Age - Over 70 or under 1: MDA
--- NOTE | 2023-08-09 10:58 | W.ANESCHARGE ---
Anesthesia Charges Start Date/Time Anesthesia Start Date: 08/09/23 Anesthesia Start Time: 10:45 Stop Date/Time Anesthesia Stop Date: 08/09/23 Anesthesia Stop Time: 10:53 Summary Emergency: MANAGER PROCESS EXCELLENCE
--- NOTE | 2023-08-09 12:03 | ED.NURSE ---
vital signs during conscious sedation attached to sedation packet.
== END 2023-08-09 11:50 | disposition home or self-care (01) ==
PROVIDERS: Emergency Provider Family Medicine; PCP Family Medicine
DX: I48.91 Unspecified atrial fibrillation (principal)
CPT/HCPCS: 00410; 36415; 71046; 80048; 82077; 83735; 83880; 84484; 85025; 85610; 85730; 92960; 93005; 94761; 99100; 99140; 99284; 99291; J2704; J7030

== ENCOUNTER 2023-08-17 22:50 | Emergency (ER) | payer MEDICARE, BC, SELFPAY ==
[2023-08-17 23:02] VITALS: BP 126/86; PULSE 80; RESP 18; TEMP 36.6; O2SAT 94; BMI 29.5
--- NOTE | 2023-08-17 23:18 | ED_ITS ---
HPI - General Adult General Date Seen: 08/17/23 Chief complaint: Arrhythmia/Palpitations Stated complaint: in A Fib Time Seen by Provider: 08/17/23 23:18 History of Present Illness HPI narrative: 73-year-old gentleman with a history of paroxysmal atrial fibrillation for the past 6 or 7 years.. It sounds like he has paroxysmal atrial fibrillation with several previous events and can often feel when he goes into it. He is referred gone through cardioversions in the past. He is on Xarelto for stroke prophylaxis. He felt himself developed fluttering and heaviness in his chest at around 10:00 p.m. Most recent visit to the ER was 1 week ago on 08/08. According to those records he has a chute tender through [facility], Dr. Yanes. It sounds like they may be considering a repeat ablation. During his ER visit on 08/08 he underwent sedation with propofol and then electrical cardioversion with 200 joules. Labs from 08/08 WBC 5.9, hemoglobin 14.6, platelet count 171 INR 1.52 Sodium 139, potassium 4.3, chloride 109, bicarb 22, creatinine 1.1, BUN 28, glucose 114, calcium 9.1, magnesium 2.3 BNP 572 Troponin 0.00 Since he was discharged from the ER last week he has been doing pretty well. He has been taking all of his prescribed medications. He felt himself have a run of AFib last night that lasted about 10 or 20 minutes and then resolved on its own. He was feeling well throughout the day today. While he was sitting and relaxing this evening around 10 he felt himself go back and AFib. He can feel the irregularity of AFib and also a mild discomfort in his chest associated with AFib. He is not lightheaded or fainting. No other severe chest pain. No shortness of breath. Knowing that he was in AFib and it lasted for more than an hour he came back to the ER tonight. Since his last visit to the ER he had called his slag production worker through [facility], Dr. Yanes. He has an appointment scheduled for September 11 for follow-up. Related Data Home Medications Medication Instructions Recorded Confirmed atorvastatin 80 mg tablet 80 mg PO DAILY 08/09/23 08/09/23 lisinopril 20 mg tablet 20 mg PO DAILY 08/09/23 08/09/23 lisinopril 40 mg tablet 40 mg PO DAILY 08/09/23 08/09/23 metoprolol succinate 50 mg 50 mg PO DAILY 08/09/23 08/09/23 tablet,extended release 24 hr propafenone 225 mg 225 mg PO Q12H 08/09/23 08/09/23 capsule,extended release 12 hr rivaroxaban 20 mg tablet (Xarelto) 20 mg PO QPM 08/09/23 08/09/23 Allergies Allergy/AdvReac Type Severity Reaction Status Date / Time amlodipine AdvReac Unknown Verified 08/09/23 07:50 PFSH [facility] Social History Smoking Status: Never smoker Do you use any of these nicotine containing products: None How often do you have a drink containing alcohol: never How often do you have six or more drinks on one occasion: Never AUDIT-C Alcohol total score: 0 Non-prescribed substance use: denies use Exam Narrative: Exam Narrative: Constitutional: Appears well-developed and well-nourished. Alert. Conversant. Non toxic. HENT: Head: Atraumatic. Nose: Nose normal. Mouth/Throat: Oral mucosa is clear and moist. no trismus. Eyes: Conjunctivae normal. EOM normal. Pupils equal, round, and reactive to light. No scleral icterus. Neck: Normal range of motion. Neck supple. No tracheal deviation present. Cardiovascular: Normal rate, irregularly irregular rhythm. No gallop. No friction rub. No murmur heard. Symmetric radial and PT artery pulses . No JVD Pulmonary/Chest: Effort normal. No stridor. No respiratory distress. No wheezes. No rales. No rhonchi . No tenderness. Abdominal: Soft. Bowel sounds normal. No distension. No mass. No tenderness. No rebound. No guarding. Musculoskeletal: RUE: Normal range of motion. No tenderness. No deformity LUE: Normal range of motion. No tenderness. No deformity RLE: Normal range of motion. No edema. No tenderness. No deformity LLE: Normal range of motion. No edema. No tenderness. No deformity Neurological: Alert and oriented to person, place, and time. Normal strength. CN II-VII intact. No sensory deficit. GCS eye subscore is 4. GCS verbal subscore is 5. GCS motor subscore is 6. Normal coordination Skin: Skin is warm and dry. No rash noted. No pallor. Normal capillary refill. Psychiatric: Normal mood. Normal affect. Const: Vital Signs, click to edit/add: Vital Signs - 24 hr 08/17/23 23:02 Temperature 98 F Pulse Rate [Pulse Oximeter] 80 Respiratory Rate 18 Blood Pressure [Ri ght Upper Arm] 126/86 Pulse Oximetry 94 Oxygen Delivery Me thod Room Air Course Vital Signs Vital signs: Initial Vital Signs Temperature 98 F 08/17/23 23:02 Temperature Source Temporal Artery Scan 08/17/23 23:02 Pulse Rate 80 08/17/23 23:02 Respiratory Rate 18 08/17/23 23:02 Blood Pressure 126/86 08/17/23 23:02 Blood Pressure Mean 99 08/17/23 23:02 Blood Pressure Position Sitting 08/17/23 23:02 Pulse Oximetry 94 08/17/23 23:02 Oxygen Delivery Method Room Air 08/17/23 23:02 Vital Signs Temperature 98 F 08/17/23 23:02 Pulse Rate 80 08/17/23 23:02 Respiratory Rate 18 08/17/23 23:02 Blood Pressure 126/86 08/17/23 23:02 Pulse Oximetry 94 08/17/23 23:02 Oxygen Delivery Method Room Air 08/17/23 23:02 Temperature 98 F 08/17/23 23:02 Pulse Rate 80 08/17/23 23:02 Respiratory Rate 18 08/17/23 23:02 Blood Pressure 126/86 08/17/23 23:02 Pulse Oximetry 94 08/17/23 23:02 Oxygen Delivery Method Room Air 08/17/23 23:02 Medical Decision Making MDM Narrative Medical decision making narrative: This is a very pleasant 73-year-old gentleman with a known history of paroxysmal atrial fibrillation dating back 6 or 7 years. He has already had 2 ablations and is currently on rhythm control with propafenone 225 mg twice daily. He is also stroke prophylaxed with Xarelto. He is on metoprolol and lisinopril for blood pressure control. He presents to the ER tonight for an episode of AFib. He felt himself go into AFib about an hour or 90 minutes prior to coming in here to the ER. EKG and vehicle calibration engineer confirm AFib. He is rate controlled. Blood pressure is normal. Oxygen is normal. Symptoms from the AFib are mild. At this point this is not an unstable tachyarrhythmia requiring immediate cardioversion. He has actually had 3 episodes of AFib this week. The 1st was cardioverted (in ER on 08/08), the 2nd episode of AFib converted to sinus on its own, and the 3rd episode is tonight. Discussed with cardiology from [facility], Dr. Strauss. At this point it would be most reasonable to monitor expectantly. He may convert back to sinus rhythm on his own without cardioversion. Even if we were to cardiovert him tonight, he is likely going to revert back into AFib but sometime in the next few days. Discussed with the patient and his . Discussed that procedural sedation and electrical cardioversion would likely be successful in restoring sinus rhythm. However this would most likely only be temporary. Cardiology's recommendation is to manage expectantly. The patient and his agree with the plan to hold off on electrocardioversion for now and rather monitor carefully at home to see if he converts on his own. If he does have elevated heart rates or develop other worsening symptoms, he will come back to the ER right away to be rechecked. The even if he converts, he will call his chute tender tomorrow morning. As per the advice of Dr. Strauss, the cardiology clinic and move up this patient has appointment to either adjust his antiarrhythmics or determine a different long-term plan for controlling his atrial fibrillation. ECG Data Attestation: I personally reviewed and interpreted this ECG as follows: Interpretation: Atrial fibrillation Rate: 92 RI: Not applicable QRS axis: Normal axis. No pathologic Q-waves. ST segment/T wave: No ST segment elevation or depression QTc: 474 Discharge Plan Discharge Clinical Impression: Atrial fibrillation Patient Disposition: Home, Self-Care Condition: Stable Instructions: A-fib (Atrial Fibrillation) (ED) Additional Instructions: Please call your chute tender, Dr. Yanes, tomorrow morning to move up your clinic appointment and get advice about what to do with your atrial fibrillation. Your chute tender may be able to give you phone advice about how to adjust your AFib medications. Continue on your current medications including her Xarelto, metoprolol, propafenone, and your other medications until you talk to your chute tender. There is a good chance that your atrial fibrillation will flip back to normal on its own. However, even if your heart does return to his normal rhythm, it is very important for you to follow-up with her chute tender within the next few days. If you have more trouble with AFib such as heart rate over 100, dizzy spells, trouble breathing, fainting, or chest pain, or any other problems, come back to the ER right away. Prescriptions: No Action atorvastatin 80 mg tablet 80 mg PO DAILY metoprolol succinate 50 mg tablet extended release 24 hr 50 mg PO DAILY lisinopril 20 mg tablet 20 mg PO DAILY lisinopril 40 mg tablet 40 mg PO DAILY propafenone 225 mg capsule,extended release 12 hr 225 mg PO Q12H Xarelto 20 mg tablet 20 mg PO QPM Follow Up/Referrals: Brendon Brandt MD [Primary Care Provider] - Stand Alone Forms: [employer] Info Instructions
--- OUTSIDE RECORDS SUMMARY | 2023-08-17 23:51 | XMS_ITS | Clinical Summary ---
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 01/07/2023 Overview: EGD 01/2023 H. Pylori, duodenal [...] 06/15/2017 Atrial fibrillation 11/29/2014 03/16/20 16 Hypertriglyceridemia 11/29/2014 0314/2 018 Encounters Date Type Department Care Team Description 08/09/2023 Orders Only [facility] Scanner 1 scan: (1-Ord) [facility], XRAY CHEST 2 VIEW, 08/09/2023 08/09/2023 Telephone [facility] [address] [place] [address] Gabe Guerrero MD Atrial Fibrillation 08/05/2023 Refill [facility] [address] [place] [id number] Raymundo Yanes MD Refill Request 08/05/2023 Refill [facility] [address] [place] [address] Brendon Brandt MD Refill Request (Lisinopril) 08/02/2023 1:15 PM CDT Office Visit [facility] [address] [place] [address] Brendon Brandt MD Follow Up (Blood pressure) 08/02/2023 Travel 07/29/2023 Refill [facility] [address] [place] [address] Brendon Brandt MD Refill Request (Atorvastatin) 07/27/2023 9:15 AM CDT Orders Only [facility] [address] [place] [address] Lab, [facility] 07/27/2023 Travel 07/05/2023 10:30 AM CDT Office Visit [address] [address] Brendon Brandt MD Medicare ANNUAL (subsequent) Visit (73 year old); Headache (Light headaches, happens occasionally, started about 2 months ago, ); Concerns (Check incision site from prostate removal for hernias/Discuss allergies) 07/05/2023 Travel 07/01/2023 Refill [facility] [address] [place] [address] Brendon Brandt MD Refill Request (Atorvastatin) 06/28/2023 9:00 AM CDT Orders Only [facility] [address] [place] [address] Lab, [facility] 06/28/2023 Travel from Last 3 Months Immunizations Name Administration Dates Next Due COVID-19 vaccine (Spectral [employer] NTech 30mcg/0.3mL) PF, MDV 06/24/2020,06/03/2020 Hepatitis B (Adult) [...] Description 09/12/2023 4:00 PM CDT Office Visit [facility] [address] [facility] [address] [place] [id number] Raymundo Yanes MD [address] [facility] [address] [place], [place] [id number] Health Maintenance Due Date Last Done Comments [...] Procedure Name Priority Date/Time Associated Diagnosis Comments SCAN-RADIOLOGY REPORT 08/09/2023 12:00 AM CDT BASIC METABOLIC PANEL Routine 07/27/2023 9:16 AM CDT Essential hypertension BASIC METABOLIC PANEL Routine 06/28/2023 9:01 AM CDT Essential hypertension HEMOGLOBIN A1C SCREENING Routine 06/28/2023 9:01 AM CDT Prediabetes PSA TOTAL (DIAGNOSTIC) Routine 06/28/2023 9:01 AM CDT Prostate cancer (HC) LIPID PANEL W REFLEX MEASURED LDL Routine 06/28/2023 9:01 AM CDT Mixed hyperlipidemia [place] COLONOSCOPY W/BIOPSY SINGLE/MULTIPLE Routine 11/09/2021 12:00 AM CDT History of colon polyps Polyp of colon, unspecified part of colon, unspecified type ANTI HCV Routine 03/26/2016 7:57 AM HEAD OF PHYSICS Need for hepatitis C screening test from Last 3 Months or Most Recently Relevant to Health Maintenance Results * SCAN-RADIOLOGY REPORT (08/09/2023 12:00 AM CDT) Anatomical Region Laterality Modality Other Scanner OTHER * (ABNORMAL) BASIC METABOLIC PANEL (07/27/2023 9:16 AM CDT) Only the most recent of2 resultswithin the time period is included. SODIUM 141 136 - 145 mmol/L 07/27/2023 7:03 PM CDT [facility] POTASSIUM 5.1 3.5 - 5.1 mmol/L 07/27/2023 7:03 PM CDT [facility] CHLORIDE 106 98 - 107 mmol/L 07/27/2023 7:03 PM CDT [facility] CO2,TOTAL 24 22 - 29 mmol/L 07/27/2023 7:03 PM CDT [facility] ANION GAP 11 5 - 18 07/27/2023 7:03 PM CDT [facility] GLUCOSE 107(H) 70 - 99 mg/dL 07/27/2023 7:03 PM CDT [facility] CALCIUM 9.2 8.8 - 10.2 mg/dL 07/27/2023 7:03 PM CDT [facility] BUN 18 8 - 23 mg/dL 07/27/2023 7:03 PM CDT [facility] CREATININE 1.19 0.70 - 1.20 mg/dL 07/27/2023 7:03 PM CDT [facility] BUN/CREAT RATIO 15 10 - 20 7:03 PM CDT [facility] eGFR 64(L) >90 mL/min/1.7 3m2 07/27/2023 7:03 PM CDT [facility] Comment:As of 2021, eG FR [...] 9:17 AM CDT Brendon Brandt MD CHEMISTRY Performing Organization Address [facility]/State/[facility] Phone Number [facility] [address] [place] [address], * HEMOGLOBIN A1C SCREENING (06/28/2023 9:01 AM CDT) HEMOGLOBIN A1C SCREENING 5.7 <=6.4 % 06/28/2023 5:09 PM CDT [facility] Blood BLOOD SPECIMEN / Unknown Venipuncture / Unknown 06/28/2023 9:01 AM CDT 06/28/2023 9:02 AM CDT Narrative [facility] - 06/28/2023 5:09 PM CDT ? (<5.7%) ?Normal ? (5.7% to 6.4%) ? Indicates prediabetes ? (>=6.5%) ? Confirms diabetes Falsely low levels may be seen with: Recent Transfusion, Recent Significant Blood Loss, Hemolytic Diseases, or Falsely elevated levels may be seen with: Untreated Anemias, Splenectomy Brendon Brandt MD CHEMISTRY [facility] [facility] [address] [place] [id number], [place] * (ABNORMAL) LIPID PANEL W REFLEX MEASURED LDL (06/28/2023 9:01 AM CDT) CHOLESTEROL,TOTAL 110 100 - 199 mg/dL 06/28/2023 4:17 PM CDT [facility] [employer] [facility] Comment: Cholesterol, Total Reference Ranges Desirable <200 mg/dL Borderline 200-239 mg/dL High >=240 mg/dL TRIGLYCERIDES 123 <150 mg/dL 06/28/2023 4:17 PM CDT [facility] [employer] [facility] HDL CHOLESTEROL 38(L) >40 mg/dL 4:17 PM CDT [facility] [employer] [facility] NON-HDL CHOLESTEROL 72 <145 mg/dl 06/28/2023 4:17 PM CDT [facility] CHOL/HDL RATIO 2.89 <4.50 06/28/2023 4:17 PM CDT [facility] LDL CHOLESTEROL 47 <=130 mg/dL 06/28/2023 4:17 PM CDT [facility] [employer] [facility] VLDL CHOLESTEROL 25 <=30 mg/dL 06/28/2023 4:17 PM CDT [facility] [employer] [facility] PROVIDER ORDERED STATUS RANDOM 06/28/2023 4:17 PM CDT [facility] [employer] [facility] Blood BLOOD SPECIMEN / Unknown Venipuncture / Unknown 06/28/2023 9:01 AM CDT 06/28/2023 9:02 AM CDT Brendon Brandt MD CHEMISTRY [facility] [employer] [facility] [address] [place] [id number], [place] * PSA TOTAL (DIAGNOSTIC) (06/28/2023 9:01 AM CDT) PSA TOTAL (DIAGNOSTIC) <0.02 <4.00 ng/mL 06/28/2023 4:41 PM CDT [facility] [employer] [facility] Blood BLOOD SPECIMEN / Unknown Venipuncture / Unknown 06/28/2023 9:01 AM CDT 06/28/2023 9:02 AM CDT Narrative [facility] - 06/28/2023 4:41 PM CDT The [...] Brendon Brandt MD CHEMISTRY Performing Organization Address [facility] Co de Phone Number [facility] [address] [place] [address], * [place] COLONOSCOPY W/BIOPSY SINGLE/MULTIPLE (11/09/2021 12:00 AM CDT) Roger Duran MD PB - [facility] * ANTI HCV [68128.2] (03/26/2016 7:57 AM HEAD OF PHYSICS) HEPATITIS C ANTIBODY Non-Reacti ve Non-Reacti ve 03/26/2016 2:17 PM HEAD OF PHYSICS [facility] Blood BLOOD SPECIMEN / Unknown Venipuncture / Unknown 03/26/2016 7:57 AM HEAD OF PHYSICS 03/26/2016 7:57 AM HEAD OF PHYSICS Narrative [facility] - 03/26/2016 2:17 PM HEAD OF PHYSICS Antibodies to HCV not detected; does not exclude the possibility of exposure to HCV. Brendon Brandt MD SEND OUTS Performing Organization Address City/[facility]/ZIP Co de Phone Number [facility] [address] [place] [address], from Last 3 Months or Most Recently [...] 7:21 AM 01/08/2015 12:50 PM Care Teams Wood Patternmaker Relationship Specialty Start Date End Date Brendon Brandt MD [address] [place] [address] PCP - General Family Practice 09/02/14
--- OUTSIDE RECORDS SUMMARY | 2023-08-17 23:51 | XMS_ITS | Referral Summary ---
Author Name Unknown Organization [facility] Address [address] [place] [address] Care Team Providers Care Laboratory Animal Facility Supervisor Name Role Phone Elsewhere, Pcp Primary Care Provider Unavailabl e Source Comments Patient records contain information from all sites at [facility]. For routine questions regarding patient records, call [phone] during business hours, M-F 8:00 AM - 5:00 PM Central Time. Record requests for emergency care only can be directed to [phone] at any time.[facility] Allergies Active Allergy Reactions Criticality Noted Date Comments Amlodipine Other (see comments) 07/26/2017 Edema on 10mg, ok on 5mg. Hydrochlorothiazide Other (see comments) 2017 Modest increase in Creatinine to 1.39. Returned to normal after stopping. Medications Medication Sig Dispensed Refills Start Date End Date Status atorvastatin (LIPITOR) 80 mg tablet Take 80 mg by mouth daily. 06/30/2022 Active desonide (DESOWEN) 0.05 % cream Apply 1 Application topically as needed. 02/05/2014 Active lisinopriL (PRINIVIL,ZESTRIL) 20 mg tablet Take 20 mg by mouth daily. Active metoprolol succinate (TOPROL-XL) 50 mg 24 hr tablet Take 50 mg by mouth daily. Active omeprazole (PriLOSEC) [address] capsule Take 20 mg by mouth 2 (two) times a day. 01/07/2023 Active propafenone (RYTHMOL) 150 mg tablet Take 450 mg by mouth daily as needed. 07/26/2022 Active Xarelto 20 mg tablet Take 20 mg by mouth daily with dinner. Active DME CPAP DME Order Active Active Problems Problem Noted Date Diagnosed Date Other Specified Bacterial Intestinal Infections 01/07/2023 Overview: EGD 01/2023 H. Pylori, duodenal polyp, referred to a larger center for polypectomy Tumor Duodenum Benign 01/07/2023 Overview: EGD 01/2023 H. Pylori, duodenal polyp, referred to a larger center for polypectomy Hyperlipidemia 06/15/2017 Hypertension Essential Primary 03/08/2017 Atrial Fibrillation Paroxysmal 02/25/2016 Primary Malignant Neoplasm Of Prostate 6 Apnea Sleep Obstructive 01/06/2015 Immunizations Name Administration Dates Next Due DTaP (Infanrix, Tripedia) 08/17/2007 HZV (ZOSTAVAX) 09/09/2010 Influenza, Unspecified 01/19/2012 PPSV23 02/05/2014 Tdap 08/17/2007 Social History Tobacco Use Types Packs/Day Years Used Date Smoking Tobacco: Former Passive Smoke Exposure: Past Smokeless Tobacco: Never Tobacco Cessation:Counseling Given: Not Answered Alcohol Use Standard Drinks/Week Comments Yes 5 (1 standard drink = 0.6 oz pur e alcohol) Overall Financial Resource Strain (CARDIA) Answe r Date Recorded How hard is it for you to pa y for the very basics like food, housing, medical care, and heating? Not hard at all 01/13/2023 Exercise Vital Sign Answer Date Recorde d On average, how many days pe r week do you engage in moderate to strenuous exercise (like a brisk walk)? 1 day 01/13/2023 On average, how many minutes do you engage in exercise at this level? 60 min 01/13/2023 Hunger Vital Sign Answer Date Recorded Within the past 12 months, y ou worried that your food would run out before you got the money to buy more. Never true 01/14/20 23 Within the past 12 months, t he food you bought just didn't last and you didn't have money to get more. Never true 01/13/2023 PRAPARE - Transportation Answer Date Re corded In the past 12 months, has l ack of transportation kept you from medical appointments or from getting medications? No 01/02 In the past 12 months, has l ack of transportation kept you from meetings, work, or from getting things needed for daily living? No 01/13/2023 Nutrition Answer Date Recorded Nutrition: EVOO Fat Source Unknown 01/13 On average, how many serving s of fruits and vegetables do you eat per day (serving size is equal to 1 cup or approximately the size of a tennis ball)? 3-5 01/13/2023 Dental Answer Date Recorded Dental: Regular Dentist Yes 01/14/20 Employment Answer Date Recorded Employment status Retired 01/13/2023 Housing Stability Answer Date Recorded What is your living situation today? I have a [facility] place to live 01/13/2023 Sex and Gender Information Value Date Recorded Sex Assigned at Male 01/13/2023 9:52 PM CDT Gender Identity Male 01/13/2023 9:52 PM CDT Sexual Orientation Straight 01/13/2023 9: 52 PM CDT Last Filed Vital Signs Vital Sign Reading Time Taken Comments Blood Pressure 128/67 03/04/2023 3:45 PM SENIOR QUALITY ENGINEER Pulse 59 03/04/2023 3:48 PM SENIOR QUALITY ENGINEER Temperature 36.9 ??C (98.4 ??F) 03/04/2023 3:15 PM CS T Respiratory Rate 18 03/04/2023 3:48 PM SENIOR QUALITY ENGINEER Oxygen Saturation 98% 03/04/2023 3:48 PM SENIOR QUALITY ENGINEER Inhaled Oxygen Concentration - - Weight 91 kg (200 lb 9.9 oz) 03/04/2023 2:24 PM SENIOR QUALITY ENGINEER Height 175.2 cm (5' 8.98) 01/17/2023 9:16 AM CD T Body Mass Index 29.65 01/17/2023 9:16 AM CDT Plan of Treatment Upcoming Encounters Date Type Department Care Team (Late st Contact Info) Description 09/08/2023 10:15 AM CDT Appointment Division of Gastroenterology in [place], [place] [address] [place] [phone] Lucas Reed M.D. [address] [place] [phone] Sierra Auguste M.D. [address] [place] [phone] Medical Devices Implanted Type Area Dispensing Operator Device Identifier Shelf Expiration Date Model / Serial / Lot Clp Hemo Cath [id number] - [id number] Implanted:Qty : 1 on 03/04/2023 by Geovanny Cruz M.D., Ph.D. at [facility] [employer] [id number] 11/02/2025 [id number] / / [id number] Clp Hemo Cath [id number] - [id number] Implanted:Qty : 1 on 03/04/2023 by Geovanny Cruz M.D., Ph.D. at [facility] [employer] [id number] 12/29/2025 [id number] / / [id number] Procedures Procedure Name Priority Date/Time Associated Diagnosis Comments EXTI COMPREHENSIVE METABOLIC PANEL, S/P Routine 04/29/2023 1:08 PM SENIOR QUALITY ENGINEER EXTI LIPID PANEL, S Routine 06/24/2022 7 :58 AM CDT from Last 3 Months or Most Recently Relevant to Health Maintenance Care Teams Laboratory Animal Facility Supervisor Relationship Specialty Start Date End Date Elsewhere, Pcp PCP - General Internal Medicine 01/14/23
--- OUTSIDE RECORDS SUMMARY | 2023-08-17 23:51 | XMS_ITS ---
Author Name Unknown Organization [facility] Address [address] [place] [address] Care Team Providers Care Preassembler And Inspector Name Role Phone Unavailable Unavailable Unavailable Surgery Details Not on file Complications Check Surgery Details section. Procedure Estimated Blood Loss Check Surgery Details section. Procedure Findings Check Surgery Details section. Procedure Specimens Taken Check Surgery Details section.
--- OUTSIDE RECORDS SUMMARY | 2023-08-17 23:51 | XMS_ITS | Clinical Summary ---
Author Name Unknown Organization [facility] Address [address] [place] [address] Care Team Providers Care Sales Account Leader Name Role Phone Elsewhere, Pcp Primary Care Provider Unavailabl e Source Comments Patient records contain information from all sites at [facility]. For routine questions regarding patient records, call [phone] during business hours, M-F 8:00 AM - 5:00 PM Central Time. Record requests for emergency care only can be directed to [phone] at any time.[facility] Allergies Active Allergy Reactions Criticality Noted Date [...] Influenza, Unspecified 01/19/2012 PPSV23 02/05/2014 Tdap 08/17/2007 Family History Medical History Relation Name Comments Coronary artery disease Father Yosvany Katz Quad ruple bypass Prostate cancer Father Yosvany Katz Parkinson disease Maternal Grandmother Analilia uJarez Arthritis Mother Namita Katz Lung cancer Mother Namita Katz Relation Name Status Comments Father Yosvany Katz Maternal Grandmother Analilia Juarez Mother Namita Katz Social History Tobacco Use Types Packs/Day Years [...] your living situation today? I have a [facility] place to live 01/13/2023 Sex and Gender Information Value Date Recorded Sex Assigned at Male 01/13/2023 9:52 PM CDT Gender Identity Male 01/13/2023 9:52 PM CDT Sexual Orientation Straight 01/13/2023 9: 52 PM CDT Last Filed Vital Signs Vital Sign Reading Time Taken Comments Blood Pressure 128/67 03/04/2023 3:45 PM ORCHESTRA DIRECTOR Pulse 59 03/04/2023 3:48 PM ORCHESTRA DIRECTOR Temperature 36.9 ??C (98.4 ??F) 03/04/2023 3:15 PM CS T Respiratory Rate 18 03/04/2023 3:48 PM ORCHESTRA DIRECTOR Oxygen Saturation 98% 03/04/2023 3:48 PM ORCHESTRA DIRECTOR Inhaled Oxygen Concentration - - Weight 91 kg (200 lb 9.9 oz) 03/04/2023 2:24 PM ORCHESTRA DIRECTOR Height 175.2 cm (5' 8.98) 01/17/2023 9:16 AM CD T Body Mass Index 29.65 01/17/2023 9:16 AM CDT Plan of Treatment Upcoming Encounters Date Type Department Care Team (Late st Contact Info) Description 09/08/2023 10:15 AM CDT Appointment Division of Gastroenterology in [place], [place] [address] [place] [address] Lucas Reed M.D. [address] [place] [address] Sierra Auguste M.D. [address] [place] [phone] Health Maintenance Due Date Last Done Comments Abdominal Aortic Aneurysm (A AA) Screen 1948 CT Colonography 1950 Cologuard 1950 Hepatitis C Screening 1950 Colonoscopy 10/09/2015 10/08/2010 Colorectal Cancer Surveillance 10/09/2015 COVID-19 Vaccine (2022-05 4 season) 2022 07/31/2021, 02/11/2021, 06/24/2020, Additional history exists Depression Screening (Annual PHQ-2) 04/04/2023 Fall Risk Screen (Annual) 04/04/2023 Office Visit for Blood Press ure Check / Re-check 01/18/2024 01/17/2023 Creatinine Level (Kidney Fun ction Test) 04/29/2024 04/29/2023, 01/24/2023, 06/24/2022, Additional history exists Potassium Level 04/29/2024 04/29/2023, 01/03, 06/24/2022, Additional history exists Sodium Level 04/29/2024 04/29/2023, 01/03, 06/24/2022, Additional history exists Fasting Glucose for Diabetes Screening 04/29/2026 04/29/2023, 01/24/2023, 06/24/2022, Additional history exists DTaP,Tdap,and Td Vaccines (4 - Td or Tdap) 06/16/2027 06/15/2017, 08/17/2007, 08/17/2007 Lipid (Cholesterol) Screening 06/25/2027, 06/22/2021, 03/10/2021, Additional history exists Zoster Vaccines Completed 09/01/2018, 06/02, 09/09/2010 Influenza Vaccine Completed 01/21/2023, , 01/08/2021, Additional history exists Pneumococcal vaccine (65+ years) Completed 07/05/2023, 07/11/2015, 02/05/2014 Medical Devices Implanted Type Area Trim Carpenter Device Identifier Shelf Expiration Date Model / Serial / Lot Clp Hemo Cath [id number] - [id number] Implanted:Qty : 1 on 03/04/2023 by Geovanny Cruz M.D., Ph.D. at [facility] [employer] [id number] 11/02/2025 [id number] / / [id number] Clp Hemo Cath [id number] - [id number] Implanted:Qty : 1 on 03/04/2023 by Geovanny Cruz M.D., Ph.D. at [facility] [employer] [id number] 12/29/2025 [id number] / / [id number] Procedures Procedure Name Priority Date/Time Associated Diagnosis Comments EXTI COMPREHENSIVE METABOLIC PANEL, S/P Routine 04/29/2023 1:08 PM ORCHESTRA DIRECTOR EXTI LIPID PANEL, S Routine 06/24/2022 7 :58 AM CDT from Last 3 Months or Most Recently Relevant to Health Maintenance Care Teams Sales Account Leader Relationship Specialty Start Date End Date Elsewhere, Pcp PCP - General Internal Medicine 01/14/23
== END 2023-08-18 00:17 | disposition home or self-care (01) ==
PROVIDERS: Emergency Provider Emergency Medicine; PCP Family Medicine
DX: I48.91 Unspecified atrial fibrillation (principal)
CPT/HCPCS: 94761; 99282; 99284